=== PATIENT | female | born 1995 | race Caucasian/White ===

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

== ENCOUNTER 2017-07-18 23:36 | Inpatient (IN) | payer OTHER ==
[2017-07-19 00:31] LABS: Urine Appearance Clear; Urine Blood Negative (Negative); Urine Color Straw; Urine Ketones Negative (Negative); Urine Protein Negative (Negative); Urine Specific Gravity 1.003 (1.010-1.030); Urine Urobilinogen Negative (Negative)
[2017-07-19] MEDS ORDERED: Betamethasone INJ* 6 MG/ML 5 ML VIAL (30 MG) IM ONE (00:54)
[2017-07-19] MEDS ORDERED: RHO D Immune Globulin (HUMAN)* 300 MCG = 1,500 I.U. INJ IM ONE (01:00)
[2017-07-19] MEDS: Ampicillin IV* 2 GM in NS 0.9% 100 ML* 100 ML IVPB SCH ×4 (01:34→20:03)
[2017-07-19 02:07] LABS: ABS Basophils 0.1 10^3/ul (0-0.2); ABS Eosinophils 0.3 10^3/ul (0-0.6); ABS Lymphocytes 2.3 10^3/ul (1.0-4.8); ABS Monocytes 0.9 10^3/ul (0-0.8); ABS Neutrophils 13.1 10^3/ul (1.5-7.7); ABS Nucleated RBC 0 10^3/ul; Hematocrit 37 % (35-47); Hemoglobin 12.7 g/dl (12.0-16.0); Lymphocyte % 13.9 % (25-47); Mean Corpuscular HGB Conc 34 g/dl (31-36); Mean Corpuscular Hemoglobin 30 pg (27-31); Mean Corpuscular Volume 86 fL (80-97); Mean Platelet Volume 11 um3 (7.4-10.4); Nucleated Red Blood Cells % 0.1; Platelet Count 160 10^3/ul (150-450); Red Blood Count 4.31 10^6/ul (4.0-5.4); Red Cell Distribution Width 14 % (10.5-15); White Blood Count 16.6 10^3/ul (3.5-10.8)
--- NOTE | 2017-07-19 09:23 | RAD ---
HISTORY: prom, growth. The gestational age by dates is: Unknown COMPARISONS: None available at the time of dictation. TECHNIQUE: Multiple transverse and longitudinal ultrasound images were obtained of the gravid uterus using Grayscale, color Doppler, and M-mode Doppler imaging. FINDINGS: /PLACENTAL EVALUATION: Number of fetuses: Single Presentation: Cephalic cardiac activity: 140 bpm Gross motion: Observed Placenta position: Anterior Amniotic fluid volume: Decreased JERICHO: 3.68 cm BIOMETRY: Biparietal diameter: 8.06 cm 32 weeks, 3 days Head circumference: 29.87 cm 33 weeks, 1 day Abdominal circumference: 27.72 cm 31 weeks, 6 days Femur length: 6.34 cm 32 weeks, 6 days HC/AC: 1.08 Estimated weight: 1937 grams, +/- 33 grams GESTATIONAL AGE: The composite gestational age is: 32 weeks, 4 days. The ABDULAZIZ is: September 09, 2017. ANATOMY: cranium: Not evaluated ventricles: Not evaluated choroid plexus: Not evaluated cerebellum: Not evaluated posterior fossa: Not evaluated face/orbits/lips: Not evaluated spine: Not evaluated heart: Normal 4 chamber diaphragm: Not evaluated stomach: Not evaluated kidneys: Not evaluated bladder: Not evaluated cord: Not evaluated CERVIX: The cervix is not well visualized. OTHER: None IMPRESSION: 1. SINGLE LIVE INTRAUTERINE GESTATION AT 32 WEEKS, 4 DAYS BY COMPOSITE GESTATIONAL AGE IN CEPHALIC PRESENTATION. 2. OLIGOHYDRAMNIOS. 3. THE CERVIX IS NOT WELL EVALUATED SECONDARY TO OLIGOHYDRAMNIOS.
[2017-07-20] MEDS ORDERED: Betamethasone INJ* 6 MG/ML 5 ML VIAL (30 MG) IM ONE (01:45)
[2017-07-20] MEDS: Ampicillin IV* 2 GM in NS 0.9% 100 ML* 100 ML IVPB SCH ×4 (01:57→20:09)
[2017-07-21] MEDS: Amoxicillin PO (*) 500 MG CAP PO SCH ×3 (02:40→21:30)
--- NOTE | 2017-07-21 11:47 | RAD ---
INDICATION: 22-year-old with premature rupture of membranes. Oligohydramnios COMPARISON: sonogram July 19, 2017 TECHNIQUE: Real-time scans were performed as part of a biophysical profile FINDINGS: There is a single intrauterine gestation in cephalic presentation. The placenta is anterior in location and appears clear of the cervical os. cardiac activity is confirmed at 143 bpm. The cervix is closed measuring 3 cm. Evaluation of the cervix is limited, however. The amniotic fluid index is decreased measuring 4.0. This is consistent with the clinical history. The biparietal diameter, abdominal circumference, head circumference, and femur length have a growth parameters corresponding to 32 weeks 5 days, 32 weeks 0 days, 30 weeks 6 days, and 32 weeks 4 days,. The average gestational age is 32 weeks 1 day. The radiology biophysical profile is as follows: breathing (0); movement (2); tone (2); amniotic fluid volume (0). The radiology biophysical profile is therefore 4. IMPRESSION: THE RADIOLOGY BIOPHYSICAL PROFILE EQUALS 4. THIS SHOULD BE CORRELATED WITH A NONSTRESS TEST. Findings discussed with referring coding auditor following the examination.
[2017-07-22 06:41] LABS: ABS Basophils 0.1 10^3/ul (0-0.2); ABS Eosinophils 0.1 10^3/ul (0-0.6); ABS Lymphocytes 2.3 10^3/ul (1.0-4.8); ABS Monocytes 0.7 10^3/ul (0-0.8); ABS Neutrophils 8.6 10^3/ul (1.5-7.7); ABS Nucleated RBC 0 10^3/ul; Eosinophil % 0.7 % (0-6); Hematocrit 34 % (35-47); Hemoglobin 11.4 g/dl (12.0-16.0); Lymphocyte % 19.7 % (25-47); Mean Corpuscular HGB Conc 34 g/dl (31-36); Mean Corpuscular Hemoglobin 30 pg (27-31); Mean Corpuscular Volume 87 fL (80-97); Mean Platelet Volume 11 um3 (7.4-10.4); Nucleated Red Blood Cells % 0.1; Platelet Count 142 10^3/ul (150-450); Red Blood Count 3.88 10^6/ul (4.0-5.4); Red Cell Distribution Width 15 % (10.5-15); White Blood Count 11.7 10^3/ul (3.5-10.8)
[2017-07-22] MEDS: Amoxicillin PO (*) 500 MG CAP PO SCH ×2 (08:08→21:07)
[2017-07-23] MEDS: Amoxicillin PO (*) 500 MG CAP PO SCH (09:04)
[2017-07-23 09:28] LABS: ABS Basophils 0.2 10^3/ul (0-0.2); ABS Eosinophils 0.1 10^3/ul (0-0.6); ABS Lymphocytes 1.6 10^3/ul (1.0-4.8); ABS Neutrophils 12.9 10^3/ul (1.5-7.7); ABS Nucleated RBC 0 10^3/ul; Eosinophil % 0.8 % (0-6); Hematocrit 36 % (35-47); Hemoglobin 12.3 g/dl (12.0-16.0); Lymphocyte % 9.9 % (25-47); Mean Corpuscular HGB Conc 34 g/dl (31-36); Mean Corpuscular Hemoglobin 30 pg (27-31); Mean Corpuscular Volume 86 fL (80-97); Mean Platelet Volume 10 um3 (7.4-10.4); Nucleated Red Blood Cells % 0; Platelet Count 151 10^3/ul (150-450); Red Blood Count 4.15 10^6/ul (4.0-5.4); Red Cell Distribution Width 14 % (10.5-15); White Blood Count 15.7 10^3/ul (3.5-10.8)
[2017-07-23] MEDS ORDERED: OBEPIDURAL* 250 ML EPIDURAL ONE (16:24)
[2017-07-23] MEDS ORDERED: Phenylephrine IV* 40 MCG/ML 10 ML SYRINGE IV PUSH PRN (17:00)
[2017-07-23] MEDS ORDERED: EPHEDrine (Pressors)* 50 MG/ML VIAL IV PUSH PRN ×2 (17:00)
[2017-07-23] MEDS ORDERED: Sodium Citrate/Citric Acid* 15 ML UDC PO PRN (17:00)
[2017-07-23] MEDS ORDERED: OBEPIDURAL* 250 ML EPIDURAL SCH (17:00)
[2017-07-23] MEDS ORDERED: Famotidine TAB* 20 MG PO PRN (17:00)
[2017-07-23] MEDS: Phenylephrine IV* 40 MCG/ML 10 ML SYRINGE IV PUSH PRN ×2 (18:00→18:03)
[2017-07-23] MEDS ORDERED: Oxytocin in LR* 20 UNITS/1,000 ML BAG IVPB ONE (20:01)
[2017-07-23] MEDS ORDERED: Dibucaine 1% 28.35 GM TUBE PR PRN (21:32)
[2017-07-23] MEDS ORDERED: Glycerin ADULT SUPP PR PRN (21:32)
[2017-07-23] MEDS ORDERED: Acetaminophen TAB* 325 MG PO PRN (21:32)
[2017-07-23] MEDS ORDERED: Ibuprofen TAB* 600 MG PO PRN (21:32)
[2017-07-23] MEDS ORDERED: Witch Hazel PAD* JAR TOPICAL PRN (21:32)
[2017-07-23] MEDS ORDERED: RHO D Immune Globulin (HUMAN)* 300 MCG = 1,500 I.U. INJ IM ONE (21:32)
[2017-07-23] MEDS ORDERED: Oxytocin in LR* 20 UNITS/1,000 ML BAG IVPB SCH (22:00)
[2017-07-24 06:25] LABS: ABS Basophils 0.1 10^3/ul (0-0.2); ABS Eosinophils 0.1 10^3/ul (0-0.6); ABS Lymphocytes 2.5 10^3/ul (1.0-4.8); ABS Monocytes 1.1 10^3/ul (0-0.8); ABS Nucleated RBC 0 10^3/ul; Eosinophil % 0.7 % (0-6); Hematocrit 33 % (35-47); Hemoglobin 10.9 g/dl (12.0-16.0); Lymphocyte % 15.9 % (25-47); Mean Corpuscular HGB Conc 34 g/dl (31-36); Mean Corpuscular Hemoglobin 29 pg (27-31); Mean Corpuscular Volume 86 fL (80-97); Mean Platelet Volume 10 um3 (7.4-10.4); Nucleated Red Blood Cells % 0; Platelet Count 157 10^3/ul (150-450); Red Blood Count 3.79 10^6/ul (4.0-5.4); Red Cell Distribution Width 15 % (10.5-15); White Blood Count 15.9 10^3/ul (3.5-10.8)
[2017-07-24] MEDS ORDERED: Simethicone TAB* 80 MG TAB.CHEW PO SCH (08:30)
[2017-07-24] MEDS: Docusate CAP* 100 MG PO SCH ×3 (08:52→22:08)
[2017-07-24] MEDS ORDERED: Ferrous Gluconate TAB* 324 MG TAB PO SCH (09:00)
[2017-07-24] MEDS: Amoxicillin PO (*) 500 MG CAP PO SCH (09:07)
[2017-07-25 09:48] VITALS: BP 133/60
[2017-07-25] MEDS: Docusate CAP* 100 MG PO SCH (09:56)
[2017-07-25] MEDS ORDERED: Tetan/Diph/Pertus SYR(Tdap)* 0.5 ML SYR(BOOSTRIX) use SYR IM ONE (13:01)
== END 2017-07-25 13:15 | disposition home or self-care (01) | DRG 560 ==
LOC: MCHOBOUT 23:36 → MCHOB 07-19 00:42
PROVIDERS: ADMIT Obstetrics & Gynecology; ATTEND Obstetrics & Gynecology
PROC: 10E0XZZ Delivery of Products of Conception, External Approach (ICD-10-PCS; principal; 2017-07-24)
PROC: 4A1HXCZ Monitoring of Products of Conception, Cardiac Rate, External Approach (ICD-10-PCS; 2017-07-24)
PROC: 10H073Z Insertion of Monitoring Electrode into Products of Conception, Via Natural or Artificial Opening (ICD-10-PCS; 2017-07-24)
PROC: 4A1H7CZ Monitoring of Products of Conception, Cardiac Rate, Via Natural or Artificial Opening (ICD-10-PCS; 2017-07-24)
DX: O42.113 Preterm premature rupture of membranes, onset of labor more than 24 hours following rupture, third trimester (principal); E66.9 Obesity, unspecified; Z3A.32 32 weeks gestation of pregnancy; Z37.0 Single live birth; O14.94 Unspecified pre-eclampsia, complicating childbirth; O99.214 Obesity complicating childbirth; O24.429 Gestational diabetes mellitus in childbirth, unspecified control; O76 Abnormality in fetal heart rate and rhythm complicating labor and delivery
CPT/HCPCS: 36415; 76815; 76819; 80053; 80307; 81003; 84112; 84550; 85025; 85461; 86850; 86870; 86880; 86900; 86901; 87070; 87086; 88307; 90715; A9270-GY; J0290; J0702; J2790

== ENCOUNTER 2017-10-16 19:39 | Emergency (ER) | payer OTHER ==
[2017-10-16 22:28] VITALS: BP 128/96
--- NOTE | 2017-10-17 02:29 | ED ---
Shakeel Campo Rebecca, scribed for Reece Ng MD on 10/16/17 at 2141 . Skin Complaint - HPI Summary HPI Summary: Pt is a 22 y/o F who presents to ED c/o abscess on the right lateral abdominal wall. Sx have been present for multiple days, gradually increasing in size and pain. Associated pain is currently moderate, ranked 6/10. Abscess is erythematous, painful, raised and slightly pruritic. She noted it had drained previously, with no active drainage. Denies fever, nausea. No recent bug bites or breaks in the skin. PMHx abscess on her lip 4 years ago. Negative PMHx DM. LNMP 2 days ago. - History of Current Complaint Chief Complaint: EDRashSkinAbscess Time Seen by Provider: 10/16/17 21:34 Stated Complaint: ABSCESS Hx Obtained From: Patient Onset/Duration: Started Days Ago, Still Present Current Severity: Moderate Pain Intensity: 6 Pain Scale Used: 0-10 Numeric Skin Location: Abdomen - Right lateral abdominal wall Character: Pruritus, Pain, Redness, Raised Aggravating Symptom(s): Nothing Alleviating Symptom(s): Nothing Associated Signs & Symptoms: Drainage - Allergy/Home Medications Allergies/Adverse Reactions: Allergies Allergy/AdvReac Type Severity Reaction Status Date / Time No Known Allergies Allergy Verified 10/16/17 21:50 PMH/Surg Hx/FS Hx/Imm Hx Endocrine/Hematology History: Denies: Hx Anticoagulant Therapy, Hx Blood Disorders, Hx Diabetes Cardiovascular History: Denies: Hx Hypertension Infectious Disease History: No Infectious Disease History: Denies: Traveled Outside the [place] in Last 30 Days - Family History Known Family History: Positive: Cardiac Disease, Diabetes - Social History Alcohol Use: None Hx Substance Use: No Substance Use Type: Reports: None Hx Tobacco Use: No Smoking Status (MU): Never Smoked Tobacco Review of Systems Negative: Fever Negative: Nausea Positive: Other - Pruritic, erythematous, raised and painful abscess on the right lateral abdominal wall with prior drainage All Other Systems Reviewed And Are Negative: Yes Physical Exam - Summary Physical Exam Summary: Appearance: Well appearing, no pain distress Skin: warm, dry, fluctuant, pointing abscess in the right lateral abdominal wall with some surrounding redness and an area where it looks like it may have been draining but there is no active draining Head/face: normal Eyes: EOMI, JESSIE ENT: normal Neck: supple, non-tender Respiratory: CTA, breath sounds present Cardiovascular: RRR, pulses symmetrical Musculoskeletal: normal, strength/ROM intact Neuro: normal, sensory motor intact, A&Ox3 Triage Information Reviewed: Yes Vital Signs On Initial Exam: Initial Vitals Temp Pulse Resp BP Pulse Ox 97 F 75 20 140/88 99 10/16/17 19:49 10/16/17 19:49 10/16/17 19:49 10/16/17 19:49 10/16/17 19:49 Vital Signs Reviewed: Yes Procedures - Procedure Summary Procedure Summary: I&D Summary: 3.5 cm abscess on the right abdominal wall. Used 5 cc of 1% Lidocaine,it was cut and purulent material was expressed. Packed with iodoform gauze. - Incision and Drainage Site: Right abdominal wall Anesthesia: Lidocaine - 5cc, 1% Instrument(s): Scalpel - #11 Packing: Gauze - Iodoform Diagnostics - Vital Signs Vital Signs Temp Pulse Resp BP Pulse Ox 10/16/17 19:49 97 F 75 20 140/88 99 - Laboratory Lab Statement: Any lab studies that have been ordered have been reviewed, and results considered in the medical decision making process. Re-Evaluation - Re-Evaluation First Eval Re-Evaluation Time: 22:10 Comment: I&D of abscess Course/Dx - Course Assessment/Plan: Pt is a 22 y/o F who presents to ED c/o abscess on the right lateral abdominal wall for multiple days, gradually increasing in size and pain. Associated pain is currently moderate, ranked 6/10. Abscess is erythematous, painful, raised and slightly pruritic. She noted it had drained previously, with no active drainage. Denies fever, nausea. LNMP 2 days ago. I&D was done, procedure note above. Pt will be D/C to home with Dx of abdominal wall abscess and Rx for Clindamycin. - Differential Diagnoses - Skin Complaint Differential Diagnoses: Other - MRSA - Diagnoses Provider Diagnoses: Abdominal wall abscess Discharge - Sign-Out/Discharge Documenting (check all that apply): Discharge/Admit/Transfer - Discharge - Discharge Plan Condition: Good Disposition: HOME Prescriptions: Clindamycin Cap(NF) [Clindamycin Cap 300 mg Cap(NF)] 300 mg PO TID #15 cap Patient Education Materials: Abscess (ED) Referrals: Alida Harper MD [Primary Care Provider] - Additional Instructions: Clean with soap provided. Have your doctor remove packing/check wound in 2 days. Return with fever, vomiting, worse or other concerns as discussed. - Billing Disposition and Condition Condition: GOOD Disposition: HOME The documentation as recorded by the Shakeel kelly Rebecca accurately reflects the service I personally performed and the decisions made by me, Reece Ng MD.
== END 2017-10-16 22:27 | disposition home or self-care (01) ==
LOC: ED 19:39
DX: L02.211 Cutaneous abscess of abdominal wall (principal)
CPT/HCPCS: 10060; 99282

== ENCOUNTER 2017-10-18 11:23 | Emergency (ER) | payer OTHER ==
[2017-10-18 11:29] VITALS: BP 152/89
--- NOTE | 2017-10-18 12:06 | ED ---
Gerald Campo Elizabeth, scribed for Dayton Cervantes on 10/18/17 at 1146 . ED Suture/Wound Check - HPI Summary HPI Summary: This patient is a 22 year old F presenting to [facility] to have wound packing removed following an I&D abscess on the right abdominal wall 2 days ago. Patient denies any new symptoms. - History Of Current Complaint Chief Complaint: EDRashSkinAbscess Stated Complaint: REMOVE PACKING REMY Time Seen by Provider: 10/18/17 11:32 Hx Obtained From: Patient Onset/Duration: Still Present Surgical Site: right abdominal wall Severity: Mild Pain Intensity: 0 Pain Scale Used: 0-10 Numeric Procedure Type: Incision & Drainage Surgery Date: 10/16/17 - Allergies/Home Medications Allergies/Adverse Reactions: Allergies Allergy/AdvReac Type Severity Reaction Status Date / Time No Known Allergies Allergy Verified 10/18/17 11:29 PMH/Surg Hx/FS Hx/Imm Hx Endocrine/Hematology History: Denies: Hx Anticoagulant Therapy, Hx Blood Disorders, Hx Diabetes Cardiovascular History: Denies: Hx Hypertension Infectious Disease History: No Infectious Disease History: Denies: Traveled Outside the [place] in Last 30 Days - Family History Known Family History: Positive: Cardiac Disease, Diabetes - Social History Alcohol Use: None Hx Substance Use: No Substance Use Type: Reports: None Hx Tobacco Use: No Smoking Status (MU): Never Smoked Tobacco Review of Systems Negative: Chills Negative: Epistaxis Negative: Chest Pain Negative: Cough All Other Systems Reviewed And Are Negative: Yes Physical Exam - Summary Physical Exam Summary: Appearance: Well appearing, no pain distress Skin: warm, dry, reflects adequate perfusion Head/face: normal Eyes: EOMI, JESSIE ENT: normal Neck: supple, non-tender Respiratory: CTA, breath sounds present Cardiovascular: RRR, pulses symmetrical ~ Abdomen: non-tender, soft, healing wound to right flank Bowel: present Musculoskeletal: normal, strength/ROM intact Neuro: normal, sensory motor intact, A&Ox3 Triage Information Reviewed: Yes Vital Signs On Initial Exam: Initial Vitals Temp Pulse Resp BP Pulse Ox 97.4 F 81 17 152/89 97 10/18/17 11:25 10/18/17 11:25 10/18/17 11:25 10/18/17 11:25 10/18/17 11:25 Vital Signs Reviewed: Yes Diagnostics - Vital Signs Vital Signs Temp Pulse Resp BP Pulse Ox 10/18/17 11:25 97.4 F 81 17 152/89 97 - Laboratory Lab Statement: Any lab studies that have been ordered have been reviewed, and results considered in the medical decision making process. Course/Dx - Course Course Of Treatment: This patient is a 22 year old F presenting to [facility] to have wound packing removed following an I&D right-side abscess 2 days ago. Physical Exam reveals a healing right flank wound. In the ED course the drain was removed and a bandage was placed. Patient will be discharged home and is advised to follow up from primary care physician in 2-3 days. The patient is agreeable with this plan. - Clinical Impression Provider Diagnoses: Wound check, abscess Discharge - Sign-Out/Discharge Documenting (check all that apply): Discharge/Admit/Transfer - Discharge Plan Condition: Stable Disposition: HOME Patient Education Materials: Abscess (ED) Referrals: Alida Harper MD [Primary Care Provider] - 3 Days (Follow up with your primary care provider in 2-3 days) Additional Instructions: Follow up with primary care physician in 2-3 days. Return to the emergency department with any new or worsening symptoms. The documentation as recorded by the Gerald kelly Elizabeth accurately reflects the service I personally performed and the decisions made by , Dayton Cervantes.
== END 2017-10-18 12:30 | disposition home or self-care (01) ==
LOC: ED 11:23
DX: L02.211 Cutaneous abscess of abdominal wall (principal)
CPT/HCPCS: 99281

== ENCOUNTER 2019-01-27 11:21 | Emergency (ER) | payer OTHER ==
[2019-01-27] MEDS ORDERED: Lidocaine 1% MPF ** 5 ML VIAL INJ ONE (13:10)
--- NOTE | 2019-01-27 13:10 | ED ---
Skin Complaint - HPI Summary HPI Summary: Pt. is a 24 y.o female who presents to the ER for possible abscess to her chin x several days. Pt. states area started as small pimple she squeezed and then it became larger. Pt. states she has had an abscess in the past. No significant past medical hx. Touching area makes sxs worse. Pt. states she was able to express a small amount of puss last night. Sxs are mild in severity. - History of Current Complaint Chief Complaint: EDRashSkinAbscess Time Seen by Provider: 01/27/19 12:58 Stated Complaint: ABCESS ON CHIN Hx Obtained From: Patient Pain Intensity: 7 - Allergy/Home Medications Allergies/Adverse Reactions: Allergies Allergy/AdvReac Type Severity Reaction Status Date / Time No Known Allergies Allergy Verified 01/27/19 11:27 PMH/Surg Hx/FS Hx/Imm Hx Previously Healthy: Yes Endocrine/Hematology History: Denies: Hx Anticoagulant Therapy, Hx Blood Disorders, Hx Diabetes Cardiovascular History: Denies: Hx Hypertension Infectious Disease History: No Infectious Disease History: Denies: Traveled Outside the [place] in Last 30 Days - Family History Known Family History: Positive: Cardiac Disease, Diabetes - Social History Alcohol Use: None Hx Substance Use: No Substance Use Type: Reports: None Hx Tobacco Use: No Smoking Status (MU): Never Smoked Tobacco Review of Systems Constitutional: Negative Negative: Fever, Chills Gastrointestinal: Negative Negative: Vomiting, Nausea Positive: Other - abscess to face All Other Systems Reviewed And Are Negative: Yes Physical Exam Triage Information Reviewed: Yes Vital Signs On Initial Exam: Initial Vitals Temp Pulse Resp BP Pulse Ox 98.2 F 89 16 183/108 98 01/27/19 11:24 01/27/19 11:24 01/27/19 11:24 01/27/19 11:24 01/27/19 11:24 Vital Signs Reviewed: Yes Appearance: Positive: Well-Appearing - Pt. sitting on bed in NAD. Skin: Positive: Warm, Dry, Other - Large area of localized erythema with scab in center located to anterior chin region. area appears fluctuant. Head/Face: Positive: Normal Head/Face Inspection Eyes: Positive: Normal, EOMI Neck: Positive: Supple Neurological: Positive: Normal, CN Intact II-III Psychiatric: Positive: Affect/Mood Appropriate Procedures - Incision and Drainage Anterior Face Anesthesia: Local, Lidocaine Instrument(s): Scalpel Packing: Gauze Diagnostics - Vital Signs Vital Signs Temp Pulse Resp BP Pulse Ox 01/27/19 11:24 98.2 F 89 16 183/108 98 - Laboratory Lab Statement: Any lab studies that have been ordered have been reviewed, and results considered in the medical decision making process. Course/Dx - Course Course Of Treatment: Pt. with abscess to chin. Afebrile and well appearing. Area was incised and a small amount of purulent matter expressed. Wound culture MRSA positive. Small amount of packing placed. WIll have pt. fu with PCP in 2- 3 days for wound check. Started on clindamycin. Advised warm compresses. Tylenol or Motrin as directed. Packing removal in 48 hours. Will return to ER for increased redness, swelling, fever or if concerned. Pt. understands and agrees with plan. - Differential Diagnoses - Skin Complaint Differential Diagnoses: Abscess, Cellulitis - Diagnoses Provider Diagnoses: Abscess Discharge - Sign-Out/Discharge Documenting (check all that apply): Patient Departure Patient Received Moderate/Deep Sedation with Procedure: No - Discharge Plan Condition: Good Disposition: HOME Prescriptions: Clindamycin HCl 300 mg PO QID #40 capsule Patient Education Materials: Abscess (ED) Referrals: Alida Harper MD [Primary Care Provider] - Additional Instructions: Follow up with PCP for wound check in 2-3 days Apply warm compresses 3-4 times a day Take antibiotic as directed Tylenol or Motrin for pain as directed Return to ER for increased pain, swelling ,redness, fever, or if concerned - Billing Disposition and Condition Condition: GOOD Disposition: Home
[2019-01-27 14:50] VITALS: BP 162/91
== END 2019-01-27 14:50 | disposition home or self-care (01) ==
LOC: ED 11:21
DX: L02.01 Cutaneous abscess of face (principal); B95.62 Methicillin resistant Staphylococcus aureus infection as the cause of diseases classified elsewhere
CPT/HCPCS: 10060; 87070; 87077; 87186; 87205; 87640; 87641; 99282